=== PATIENT | male | born 1955 | race Caucasian/White ===

== ENCOUNTER → 2020-02-04 09:05 | Outpatient (CLI) | payer BC, SELFPAY | PROVIDERS: PCP Internal Medicine; Referring Provider Internal Medicine; Visit Provider Internal Medicine | DX: U07.1 COVID-19 (principal) | CPT/HCPCS: 87635; 94799; U0003 ==

== ENCOUNTER 2020-08-22 09:46 | Outpatient (RCR) | payer MEDICARE, BC, SELFPAY ==
[2020-08-22] MEDS: COVID-19 VACC, MRNA(PFIZER)/PF 30 MCG/0.3 ML SYRINGE IM (18:24)
[2020-09-12] MEDS: COVID-19 VACC, MRNA(PFIZER)/PF 30 MCG/0.3 ML SYRINGE IM (17:58)
== END 2020-11-19 23:59 ==
LOC: IMMUN 09:46
PROVIDERS: PCP Internal Medicine; Visit Provider Family Medicine
DX: Z23 Encounter for immunization (principal)
CPT/HCPCS: 0001A; 0002A; 91300

== ENCOUNTER 2021-01-21 23:44 | Emergency (ER) | payer MEDICARE, BC, SELFPAY ==
[2021-01-21 23:46] VITALS: BP 137/72; PULSE 49; RESP 18; TEMP 36.2; O2SAT 99; BMI 29.7
--- NOTE | 2021-01-22 | RAD_ITS ---
STUDY: X-RAY - UNILATERAL RIBS ( LEFT ) WITH CHEST REASON FOR EXAM: Male, 65 years old. Injury No Further history was provided. TECHNIQUE - RIBS: 4 view(s) of the ribs. TECHNIQUE - CHEST: Single PA view of the chest. COMPARISON: None. FINDINGS - RIBS: There is a suggestion of a nondisplaced fracture anterior left rib 6. FINDINGS - CHEST: The lungs are clear and expanded. There is no demonstrated pleural abnormality. Normal size heart. Normal mediastinum and josefina. Normal visualized pulmonary arteries. There is atherosclerotic calcification of the aortic arch with tortuosity. There are diffuse degenerative changes of the visualized thoracic spine. There is a subtle suggestion of a fracture of anterior left rib 6. This is allowing for summation of shadows. There is no demonstrated abnormality of the visualized soft tissue structures of the upper abdomen. RAD/Ribs Uni Min 3V w/PA Chest IMPRESSION: RIBS: Findings suspicious on one view for nondisplaced fracture of anterior left rib 6. CHEST: No visualized focal infiltrate. Electronically Signed: Brook Gillis MD at 2:05 EDT Tel , Service support ,
--- NOTE | 2021-01-22 02:15 | EDS_ITS ---
HPI History of Present Illness Chief Complaint: Chest Other Detail of Chief Complaint: Left rib pain Informant: patient Onset/Context/Timing Onset: Today Current Severity: Mild Maximum Severity: Moderate Narrative Narrative: Patient presents after left anterior rib injury. Patient states that he was on a tractor that got stuck in a ditch. As it was falling into the ditch patient jumped off of the tractor. He believes he struck his left anterior chest against the tractor. He is been having pain to that area. He denies shortness of breath. [facility] Medical History Back pain at L4-L5 level Hypertension Myocardial infarct Home Medications hydrocodone-acetaminophen 1 tab PO Q6H PRN 3 Days #10 tab 01/22/21 [Rx Last Taken Unknown] Allergy/AdvReac Type Severity Reaction Status Date / Time fentanyl Allergy Other Verified 01/21/21 23:45 meperidine [From Demerol] Allergy Other Verified 01/21/21 23:45 Penicillins AdvReac Rash Verified 01/21/21 23:45 Surgical History History of heart artery stent Social History Smoking Status: Former smoker ROS ROS ED Constitutional Constitutional ED: Denies chills or fever(s) Eyes Eyes: Denies change in vision ENT ENT ED: Denies sore throat Cardiovascular Cardiovascular: Reports chest pain Respiratory/Chest Respiratory/Chest: Denies cough or dyspnea Gastrointestinal Gastrointestinal: Denies abdominal pain, diarrhea, nausea or vomiting Genitourinary Genitourinary ED: Denies dysuria Musculoskeletal Musculoskeletal: Denies back pain Integumentary Denies Abrasions or rash Neurologic Neurologic: Denies headache(s), paresthesias or weakness Psychiatric Psychiatric: Denies anxiety or depression Allergic/Immunologic Allergic/Immunologic ED: Denies urticaria EXAM Physical Exam Const Vital Signs: 01/21/21 23:46 Temperature 97.2 F L Temperature Source Temporal Pulse Rate 49 L Respiratory Rate 18 Blood Pressure 137/72 H Blood Pressure Mean 93 Pulse Ox 99 Positive well nourished and well developed General Appearance ED: well developed HEENT Reports normocephalic and head/scalp atraumatic Eyes PERRL and EOMs intact bilaterally Neck supple Chest Wall inspection of chest normal Chest Narrative: Left anterior chest wall tenderness. No crepitus. No abrasions or ecchymoses noted. Resp normal respiratory effort and clear to auscultation bilaterally Cardio regular rate and regular rhythm GI normal to inspection, nondistended, normoactive bowel sounds Palpation: soft Back/Spine no CVA tenderness Extremity normal to inspection Neuro oriented x3 and no sensory deficits noted Sensorium / Orientation: alert Motor Exam: strength 5/5 throughout Psych mental status grossly normal Skin no rashes or lesions noted MDM MDM MDM Narrative Medical decision making narrative: Patient declines anything for pain while here. Rib series with chest x-ray obtained. Radiography Diagnostic Testing: Radiology Impression Ribs w/Chest X-Ray 01/22/21 00:00 IMPRESSION: RIBS: Findings suspicious on one view for nondisplaced fracture of anterior left rib 6. CHEST: No visualized focal infiltrate. Electronically Signed: Brook Gillis MD at 2:05 EDT Tel , Service support , Treatment and Re-Evaluation Comments:: No obvious displaced rib fracture per my interpretation. Radiology interpretation does reveal suspicion of a nondisplaced fracture of left rib #6. Test results discussed with patient and at bedside. We discussed the importance of deep breathing. Patient will be given a prescription for Vicodin to use at home as needed for worsened pain. Discharge Plan Triage Chief Complaint: Chest Other ED Provider: Berenice Sanabria Dx/Rx/DC Orders Clinical Impression: Fractured rib Instructions: ED Rib Fracture Prescriptions: New hydrocodone-acetaminophen 5-325 mg tablet 1 tab PO Q6H PRN (Reason: pain) 3 Days Qty: 10 RF: 0 Primary Care Provider: Quita Enamorado Referrals: Quita Enamorado MD [Primary Care Provider] - 1-2 Weeks Disposition Disposition: Home, Self Care Discharge Date/Time: 01/22/21 02:32
== END 2021-01-22 02:32 | disposition home or self-care (01) ==
PROVIDERS: Emergency Provider Emergency Medicine; PCP Internal Medicine
DX: S22.32XA Fracture of one rib, left side, initial encounter for closed fracture (principal); V84.9XXA Unspecified occupant of special agricultural vehicle injured in nontraffic accident, initial encounter; Y93.9 Activity, unspecified; Y92.9 Unspecified place or not applicable; I25.2 Old myocardial infarction; Z87.891 Personal history of nicotine dependence
CPT/HCPCS: 71101; 99282

== ENCOUNTER 2021-02-16 05:34 | Emergency (ER) | payer MEDICARE, BC, SELFPAY ==
[2021-02-16 05:35] VITALS: BP 135/74; RESP 18; TEMP 35.7; O2SAT 99; BMI 30.1
--- NOTE | 2021-02-16 05:42 | CT_ITS ---
HISTORY: Kidney Stone TECHNIQUE: Multiple axial images were obtained of the abdomen and pelvis without oral or IV contrast. Coronal and sagittal reformats obtained. A radiation dose optimization technique was used for this scan. COMPARISON: None FINDINGS: # of images incl. paperwork: 480 LUNG BASES: Unremarkable. Coronary atherosclerosis. LIVER T BILIARY TRACT: Unremarkable gallbladder. No acute hepatic finding. ADRENAL GLANDS: Unremarkable. SPLEEN: Calcified sequela of prior granulomatous disease. PANCREAS: Unremarkable. KIDNEYS/URETERS/BLADDER: Mild left hydronephrosis with multiple renal stones up to 4 mm in size. Mild left hydroureter with 2 mm left ureteral vesicle junction stone. Nonobstructive 3 mm right renal stone. No right hydronephrosis or hydroureter. Mild bilateral perinephric stranding, left greater than right. Bladder partially decompressed. LYMPH NODES: No suspicious adenopathy. STOMACH, SMALL AND LARGE BOWEL: No acute gastric finding. No small bowel obstruction or gross wall thickening. 7 mm appendix without surrounding inflammation. No acute colonic finding. Distal colonic diverticulosis without evidence of diverticulitis. ASCITES/FREE AIR: No free fluid or free air. AORTA: Unremarkable. PELVIS: Unremarkable. MUSCULOSKELETAL: No acute osseous finding. Fat-containing umbilical hernia without inflammation. CT/Abdomen/Pelvis without Cont IMPRESSION: 2 mm left ureteral vesicle junction stone with mild hydronephrosis. Mild left perinephric inflammation superimposed on senescent fat stranding. Additional residual bilateral nephrolithiasis. Colonic diverticulosis without evidence of diverticulitis. Individualized dose optimization techniques were used for this CT. at 0714 Reported and signed by: Peewee Dawson MD Electronically Signed: Peewee Dawson MD at 7:12 EDT Tel , Service support ,
--- NOTE | 2021-02-16 05:43 | EDS_ITS ---
HPI History of Present Illness Chief Complaint: Flank Pain Informant: patient Narrative Narrative: Sudden left flank pain awakening him 2 hours ago. Transient nausea. No vomiting. No urinary symptoms. No history of kidney stones. Reports did do some lifting yesterday however did not feel that he hurt his back. Does have history of chronic back pain on meloxicam and tramadol is followed by pain management. States this pain feels different. No pain down his legs. Of note seen month ago for left rib fracture from a fall, reports this is improving. Reports pain currently 6-7. Prior similar symptoms: No PFSH PFSH Medical History Back pain at L4-L5 level Hypertension Myocardial infarct Home Medications aspirin 81 mg PO DAILY 02/16/21 [History Last Taken Unknown] lisinopril-hydrochlorothiazide 1 tab PO DAILY 02/16/21 [History Last Taken Unknown] meloxicam 15 mg PO DAILY 02/16/21 [History Last Taken Unknown] ondansetron 4 mg PO Q6H PRN #10 tab 02/16/21 [Rx Last Taken Unknown] rosuvastatin 5 mg PO DAILY 02/16/21 [History Last Taken Unknown] tramadol 200 mg PO DAILY 02/16/21 [History Last Taken Unknown] Allergy/AdvReac Type Severity Reaction Status Date / Time fentanyl Allergy Other Verified 02/16/21 05:35 meperidine [From Demerol] Allergy Other Verified 02/16/21 05:35 Penicillins AdvReac Rash Verified 02/16/21 05:35 Surgical History History of heart artery stent Social History Smoking Status: Former smoker ROS ROS ED Constitutional Constitutional ED: Denies chills, fever(s) or sweats Eyes Eyes: Denies change in vision ENT ENT ED: Denies dysphagia or sore throat Cardiovascular Cardiovascular: Denies chest pain, leg edema, palpitations or racing heartbeat Respiratory/Chest Respiratory/Chest: Denies cough, dyspnea or dyspnea on exertion Gastrointestinal Gastrointestinal: Denies abdominal pain, diarrhea, nausea or vomiting Genitourinary Genitourinary ED: Denies dysuria, hematuria or urinary frequency Musculoskeletal Musculoskeletal: Reports back pain; Denies extremity pain or neck pain Integumentary Denies rash or wounds Neurologic Neurologic: Denies headache(s), paresthesias or weakness EXAM Physical Exam Const Vital Signs: 02/16/21 05:35 Temperature 96.3 F L Temperature Source Temporal Respiratory Rate 18 Blood Pressure 135/74 H Blood Pressure Mean 94 Pulse Ox 99 Positive well nourished and well developed Constitutional Narrative: Mild uncomfortable, nontoxic. General Appearance ED: well developed HEENT Reports moist mucous membranes normocephalic and atraumatic Eyes PERRL, EOMs intact bilaterally and conjunctivae normal General Eye ED: Yes normal appearance of both eyes Neck no lymphadenopathy and supple General: Negative for tenderness Chest Wall Chest: Negative for tenderness Resp normal respiratory effort and normal air movement Effort and Inspection: symmetric chest movement; Negative for respiratory distress Cardio regular rate, regular rhythm and no murmurs Peripheral Pulses: pulses 2+ throughout GI normal to inspection, nondistended, normoactive bowel sounds and non-tender Palpation: Negative for guarding or rebound tenderness present Back/Spine no thoracic nor lumbar tenderness Back/Spine Narrative: Tender palpation left flank, no rash or ecchymosis. Extremity normal to inspection General Extremety ED: Negative for edema or tenderness General Extremity: Negative for edema Neuro oriented x3 and no sensory deficits noted Sensorium / Orientation: awake and alert Skin no rashes or lesions noted and no wounds MDM MDM MDM Narrative Medical decision making narrative: Patient worked up renal stone protocol. Morphine Zofran Toradol given for symptom control. Laboratory studies normal urine negative for blood or infection. Flank CT scan reviewed by myself noting left-sided hydroureter, appears to have a left UVJ stone. Pending final read at this time. Patient was reevaluated symptoms controlled. He does have tramadol and meloxicam at home. Zofran prescription sent to his pharmacy. Plan on urine strainer with urology follow-up. 0715: Confirmed 2 mm UVJ stone left side per radiologist. Mild stranding noted. Urine without infection. Symptoms remain controlled. Follow-up as an outpatient. Urine strainer for home. Signs and symptoms discussed return. All questions were answered. Lab Data Attestation: I reviewed the patient's lab results. Labs: Laboratory Results - last 24 hr 02/16/21 02/16/21 02/16/21 05:40 05:40 05:45 WBC 7.2 RBC 4.07 L Hgb 13.8 Hct 40.1 MCV 98.5 H MCH 33.9 H MCHC 34.4 RDW Std Deviation 42.3 RDW Coeff of [place] 11.7 Plt Count 182 MPV 9.9 Immature Gran % (Auto) 0.400 Neut % (Auto) 60.1 Lymph % (Auto) 25.2 [place] % (Auto) 12.0 H Eos % (Auto) 1.7 Baso % (Auto) 0.6 Absolute Neuts (auto) 4.3 Absolute Lymphs (auto) 1.80 Nucleated RBC % 0 Sodium 136 Potassium 4.1 Chloride 104 Carbon Dioxide 29.0 Anion Gap 3 L BUN 26 H Creatinine 0.98 Estim Creat Clear Calc 77.59 Est GFR (MDRD) Af Amer 99 Est GFR (MDRD) Non-Af 82 BUN/Creatinine Ratio 26.6 H Glucose 122 H Calcium 8.7 Urine Color Yellow Urine Clarity Sl. Cloudy Urine pH 5.0 Ur Specific [place] 1.020 Urine Protein Negative Urine Glucose (UA) Normal Urine Ketones Negative Urine Occult Blood Negative Urine Nitrite Negative Urine Bilirubin Negative Urine Urobilinogen Normal Ur Leukocyte Esterase Negative Discharge Plan Triage Chief Complaint: Flank Pain ED Provider: Teddy Quintero Dx/Rx/DC Orders Instructions: ED Kidney Stone w/ Colic Prescriptions: New ondansetron 4 mg tablet,disintegrating 4 mg PO Q6H PRN (Reason: nausea and vomiting) Qty: 10 RF: 0 No Action meloxicam 15 mg tablet 15 mg PO DAILY RF: 0 lisinopril-hydrochlorothiazide 20-25 mg tablet 1 tab PO DAILY RF: 0 aspirin 81 mg Tablet 81 mg PO DAILY RF: 0 rosuvastatin 5 mg tablet 5 mg PO DAILY RF: 0 tramadol 200 mg tablet extended release 24 hr 200 mg PO DAILY RF: 0 Primary Care Provider: Quita Enamorado Referrals: Quita Enamorado MD [Primary Care Provider] - Adam Greene MD [STAFF PHYSICIAN] - 5-7 Days Activity Restrictions/Additional Instructions: Strain your urine. Take your medications for pain as needed. Follow-up with urology.
[2021-02-16 05:48] LABS: Absolute Neutrophil Count 4.3 X10^3/uL (2.0-7.7); Basophil# 0.04 X10^3/uL; Basophil% 0.6 % (0-1); Eosinophil# 0.12 X10^3/uL; Eosinophils% 1.7 % (0-5); Hematocrit 40.1 % (40-54); Hemoglobin 13.8 g/dL (13.0-16.5); Lymphocyte % 25.2 % (19-41); Mean Corp Hgb Conc 34.4 g/dL (32-36); Mean Corpuscular Hgb 33.9 pg (27.0-32.0); Mean Corpuscular Volume 98.5 fL (80-94); Mean Platelet Vol. 9.9 fl (6.2-12.0); Monocyte# 0.86 X10^3/uL; NRBC Flagged by Analyzer 0 % (0-5); Neutrophil % 60.1 % (47-70); Platelet Count 182 K/mm3 (150-450); RBC Distribution Width CV 11.7 % (11.6-14.6); RBC Distribution Width SD 42.3 fl (35.1-43.9); Red Blood Count 4.07 M/mm3 (4.6-6.2); White Blood Count 7.2 K/mm3 (4.4-11.0)
[2021-02-16] MEDS: Ketorolac 15 MG/ML Vial IV (05:49)
[2021-02-16] MEDS: 0.9% Normal Saline 1,000 ML 250 ML IV (05:49)
[2021-02-16] MEDS: Ondansetron 4 MG/2 ML Vial IV (05:49)
[2021-02-16 05:53] LABS: Bacteria 0 SEEN /hpf (None Seen); Mucous, Urine 0 SEEN /hpf (<or=2+); Red Blood Cells-Urine 0 SEEN /hpf (0-5); Squamous Epithelial Cells - UA 0 SEEN /hpf (0-5); White Blood Cells 0 SEEN /hpf (0-5)
[2021-02-16 05:54] LABS: Color, Urine Yellow (Yellow); Glucose, Dipstick Normal (Normal); Ketone-Dipstick Negative (Negative); Leukocyte Esterase-Dipstick Negative /ul (Negative); Nitrite-Dipstick Negative (Negative); Occult Blood-Urine Negative /ul (Negative); Protein-Dipstick Negative (Negative); Urine Bilirubin Dipstick Negative (Negative); Urine Clarity Sl. Cloudy (Clear); Urine Urobilinogen Normal (Normal)
[2021-02-16 06:05] LABS: Anion Gap 3 (5-15); BUN 26 mg/dL (7-18); BUN/Creat Ratio 26.6 RATIO (10-20); Calcium,Total 8.7 mg/dL (8.5-10.1); Chloride 104 mmol/L (98-107); Creatinine, Serum 0.98 mg/dL (0.70-1.30); EST Glomerular Filtration Rate 82 mL/min (>60); Est Glom Filt Rate - Afr Amer 99 mL/min (>60); Estimated Creatinine Clearance 77.59 ml/min; Glucose 122 mg/dL (74-106); Potassium 4.1 mmol/L (3.5-5.1); Sodium Level 136 mmol/L (136-145)
== END 2021-02-16 07:30 | disposition home or self-care (01) ==
LOC: ED 05:56
PROVIDERS: Emergency Provider Emergency Medicine; PCP Internal Medicine
DX: N20.1 Calculus of ureter (principal); I10 Essential (primary) hypertension; Z79.899 Other long term (current) drug therapy; Z87.891 Personal history of nicotine dependence
CPT/HCPCS: 74176; 80048; 81001; 85025; 96361; 96374; 96375; 99283; J7030; A4216; J2405

== ENCOUNTER 2022-05-07 17:30 | Emergency (ER) | payer MEDICARE, BC, SELFPAY ==
[2022-05-07 17:31] VITALS: BP 184/78; PULSE 70; RESP 16; TEMP 36.8; O2SAT 98; BMI 32.7
--- NOTE | 2022-05-07 17:48 | EDS_ITS ---
HPI History of Present Illness Chief Complaint: Lower Extremity Injury Informant: patient Onset/Context/Timing Onset: Days (2-3) Context: Gradual Onset Timing: Continuous Quality of Pain: Aching Location: L anterior knee Current Severity: Mild Maximum Severity: Moderate Worsened by: kneeling on it Relieved by: rest, walking Associated Symptoms Associated Symptoms: Negative for Parasthesia, Weakness or Loss of Funtion Narrative Narrative: Patient presenting with gradual onset of pain and swelling anterior left knee over the kneecap mostly. No popliteal or calf pain. It has become red and a little swollen, and the redness is starting to go down his barros. No history of DVT, he takes aspirin because of a history of stents in his heart but no other antiplatelet medications or anticoagulants, no recent long travel or immobilization. states she is concerned about a DVT because I know someone who of a DVT at their knee. 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 [facility] Medical History Back pain at L4-L5 level Hypertension Myocardial infarct Home Medications aspirin 81 mg tablet 81 mg PO DAILY 02/16/21 [History Last Taken Unknown] lisinopril 20 mg-hydrochlorothiazide 25 mg tablet 1 tab PO DAILY 02/16/21 [History Last Taken Unknown] meloxicam 15 mg tablet 15 mg PO DAILY 02/16/21 [History Last Taken Unknown] ondansetron 4 mg disintegrating tablet 4 mg PO Q6H PRN PRN Nausea #10 tabs 02/16/21 [Rx Last Taken Unknown] rosuvastatin 5 mg tablet 5 mg PO DAILY 02/16/21 [History Last Taken Unknown] tramadol 200 mg tablet,extended release 24 hr 200 mg PO DAILY 02/16/21 [History Last Taken Unknown] cephalexin 500 mg capsule 500 mg PO Q6 #40 CAPSULES 05/07/22 [Rx Last Taken Unknown] Allergy/AdvReac Type Severity Reaction Status Date / Time fentanyl Allergy Other Verified 05/07/22 17:32 meperidine [From Demerol] Allergy Other Verified 05/07/22 17:32 Penicillins AdvReac Rash Verified 05/07/22 17:32 Surgical History History of heart artery stent Social History Smoking Status: Former smoker ROS ROS ED Constitutional Constitutional ED: Denies chills or fever(s) Cardiovascular Cardiovascular: Denies chest pain Respiratory/Chest Respiratory/Chest: Denies dyspnea Musculoskeletal Musculoskeletal: Reports extremity pain; Denies neck pain Integumentary Reports rash; Denies Abrasions or wounds Neurologic Neurologic: Denies paresthesias or weakness EXAM Physical Exam Const Vital Signs: 05/07/22 17:31 Temperature 98.2 F Temperature Source Temporal Pulse Rate 70 Respiratory Rate 16 Blood Pressure 184/78 H Blood Pressure Mean 113 Pulse Ox 98 Oxygen Delivery Method Room Air Positive well nourished and well developed General Appearance ED: well developed and NAD Neck full ROM and supple Back/Spine normal ROM and normal to inspection Extremity full ROM Extremity Narrative: Mildly tender boggy erythema over the left patella. Some mild erythema distal to this along the anterior left lower leg but nontender. No calf tenderness. No popliteal fossa tenderness. Extensor mechanism intact, full range of motion including flexion with no pain. There is no obvious nidus for infection there is no abscess or fluctuance. All knee ligaments are stable and intact with short endpoints and no pain on stressing. Neuro oriented x3, no focal motor deficits and no sensory deficits noted Sensorium / Orientation: alert Psych mental status grossly normal and thought process normal Skin no wounds Rashes: no rashes MDM MDM MDM Narrative Medical decision making narrative: Patient has had no systemic symptoms or fevers, this is all consistent with prepatellar bursitis, likely inflammatory due to kneeling but he is already on meloxicam, so group B strep infection is certainly possible. It is a little boggy but I do not think swollen enough to aspirate right now, so I am treating him empirically with cephalexin, he already has an appointment in about 1.5 weeks with orthopedics, I think that is perfect follow-up for this. I reassured him I do not think this is a DVT nor does he need tested for 1 given the current presentation. Discharge Plan Triage Chief Complaint: Lower Extremity Injury ED Provider: Cody Lilly Dx/Rx/DC Orders Clinical Impression: Prepatellar bursitis of left knee Instructions: Understanding Prepatellar Bursitis Prescriptions: New cephalexin [cephalexin] 500 mg capsule 500 mg PO Q6 Qty: 40 0RF No Action meloxicam 15 mg tablet 15 mg PO DAILY Label Comments: TAKE 1 TABLET BY MOUTH EVERY DAY lisinopril-hydrochlorothiazide 20-25 mg tablet 1 tab PO DAILY Label Comments: TAKE 1 TABLET BY MOUTH EVERY DAY aspirin 81 mg Tablet 81 mg PO DAILY rosuvastatin 5 mg tablet 5 mg PO DAILY Label Comments: TAKE 1 TABLET BY MOUTH EVERY DAY tramadol 200 mg tablet extended release 24 hr 200 mg PO DAILY Label Comments: TAKE 1 TABLET BY MOUTH EVERY DAY ondansetron [ondansetron] 4 MG tablet 4 mg PO Q6H PRN PRN (Reason: Nausea) Qty: 10 0RF Primary Care Provider: Quita Enamorado Referrals: Quita Enamorado MD [Primary Care Provider] - German Perla MD [Med Staff - Active Staff] - Keep Katelynn appointment (or other orthopaedic) Disposition Disposition: Home, Self Care
[2022-05-07] MEDS: Cephalexin 250 MG Capsule 500 MG PO (18:24)
== END 2022-05-07 18:28 | disposition home or self-care (01) ==
PROVIDERS: Emergency Provider Emergency Medicine; PCP Internal Medicine; Visit Provider Emergency Medicine
DX: M70.42 Prepatellar bursitis, left knee (principal); I10 Essential (primary) hypertension; Z87.891 Personal history of nicotine dependence
CPT/HCPCS: 99282